=== PATIENT | male | born 1950 | race African-American/Black ===

== ENCOUNTER 2018-11-08 13:07 | Observation (INO) ==
[2018-11-08 14:12] LABS: BASO# 0.02 X1000 (0.0-0.2); BASO% 0.3 % (0.0-0.8); EOS# 0.07 X1000 (0.0-0.7); EOS% 0.9 % (0.0-10.0); HEMATOCRIT 30.3 % (42.0-52.0); HEMOGLOBIN 9.9 g/dL (14.0-18.0); IMM GRAN# 0.03 X1000 (0.0-0.04); IMM GRAN% 0.4 % (0.0-0.5); LYMPH# 1.33 X1000 (1.2-3.4); MCH 30.4 PG (27-31); MCHC 32.7 g/dL (33-37); MCV 92.9 FL (81-99); MONO# 0.87 X1000 (0.11-0.59); MONO% 11.1 % (1.7-9.3); MPV 9.8 FL (7.4-10.4); NEUT# 5.49 X1000 (1.4-6.5); NEUT% 70.3 % (42.2-75.2); PLT 146 X1000 (130-400); RBC 3.26 XMIL (4.7-6.1); RDW 13.3 % (11.5-14.5); WBC 7.81 X1000 (4.8-10.8)
[2018-11-08 15:03] LABS: AGAP 9; ALB/GLOB RATIO 1.1; ALBUMIN 3.5 g/dL (3.5-5.0); ALKALINE PHOSPHATASE 65 U/L (32-122); BUN 21 mg/dL (8-22); CALCIUM 8.5 mg/dL (8.8-10.2); CHLORIDE 100 mmol/L (98-107); COSMO 278; CREATININE 1.4 mg/dL (0.7-1.2); ESTIMATED GFR > 60; GLUCOSE 115 mg/dL (70-104); GOT 16 U/L (10-34); GPT 10 U/L (10-44); POTASSIUM 4.2 mmol/L (3.5-5.1); SODIUM 137 mmol/L (136-145); TCO2 28 mmol/L (25-35); TOTAL PROTEIN 6.6 g/dL (6.3-8.3)
[2018-11-08] MEDS ORDERED: PERICOLACE PO ONE (17:50)
[2018-11-08] MEDS: LR 1,000 ML IV SCH (17:55)
[2018-11-08] MEDS: KEFZOL 1 GM/D5W 1 GM/50 ML IVPB IV SCH (22:40)
[2018-11-08] MEDS: NORCO-10 PO PRN (23:01)
[2018-11-09] MEDS: LR 1,000 ML IV SCH ×3 (01:47→11:12)
[2018-11-09] MEDS: NORCO-10 PO PRN (04:19)
[2018-11-09] MEDS: KEFZOL 1 GM/D5W 1 GM/50 ML IVPB IV SCH (06:06)
[2018-11-09 07:52] VITALS: BP 120/70
[2018-11-09] MEDS: HYDROCHLOROTHIAZIDE PO SCH ×2 (08:40→08:41)
[2018-11-09] MEDS ORDERED: CIPRO PO SCH (09:00)
[2018-11-09] MEDS ORDERED: PERICOLACE PO ONE (10:14)
--- NOTE | 2018-11-09 12:34 | DISCHARGE SUMMARY ---
ADMISSION DATE: 11/08/2018 DISCHARGE DATE: Date of admission for 23 hour observation was 11/08/2018. He is discharged prior to 24 hours. HOSPITAL COURSE: The patient admitted to the hospital from my office because he is 24 hours postop from a functional abdominoplasty. At home because he is elderly and does not have good family support, he was becoming dehydrated and was not caring for his Dileep-Dominguez drains properly so he was admitted to the hospital for IV hydration, laboratory checks, and better drain management to help his postoperative course. His hemoglobin on admission was 9.9, his hematocrit was 30.3. Those are expected values after removing 12 pounds of fat and skin from his abdomen. He feels much better this morning. His vital signs are stable. We have given him 2 courses of 2 pills of Lis-Colace to help with his constipation. His wounds look good. His abdomen is soft, and the drain outputs are becoming more clear. He will be discharged to home around lunch time. His son will bring him to the office prior to going home so I can change his dressings in the office for the weekend. cc: Henry Saavedra MD
== END 2018-11-09 13:22 | disposition home or self-care (01) ==
LOC: DIRADM → 4N 13:07
PROVIDERS: ADMIT Surgery Plastic and Reconstructive Surgery; ATTEND Surgery Plastic and Reconstructive Surgery
CPT/HCPCS: 80053; 82948; 85025; 94761; 94799; A9270; J0690; J7120; XXXXX